=== PATIENT | male | born 1955 | race Caucasian/White ===

== ENCOUNTER → 2024-08-01 13:50 | Outpatient (BNVA) | payer BC, SELFPAY | PROVIDERS: Family Provider Nurse Practitioner; PCP Nurse Practitioner Family; Visit Provider Nurse Practitioner Family | DX: M51.369 Other intervertebral disc degeneration, lumbar region without mention of lumbar back pain or lower extremity pain (principal); M50.30 Other cervical disc degeneration, unspecified cervical region | CPT/HCPCS: 72052; 72114 ==